=== PATIENT | female | born 1985 | race Caucasian/White ===

== ENCOUNTER 2024-01-08 08:31 | Outpatient (CLI) | payer BC, SELFPAY ==
[2024-01-08 08:50] VITALS: PULSE 81; O2SAT 99
[2024-01-08 08:53] VITALS: BP 116/70; PULSE 78
[2024-01-08 08:54] VITALS: RESP 16; TEMP 36.7
[2024-01-08 08:55] VITALS: PULSE 94; O2SAT 99
[2024-01-08] MEDS: LACTATED RINGERS 1000 ML 1,000 ML IV (09:25)
--- NOTE | 2024-01-08 09:25 | P.OBCN_ITS ---
OB - CN: HPI Date of Consult Time Seen by Provider: : Date Seen: 01/08/24 Consult date: 01/08/24 Requesting Physician: Emmy Coronel MD Primary Care Provider: Carolina Alvarez MD Consult Narrative Narrative: Martina is a 38yo at 37w1d GA seen in triage for planned ECV for malpresentation. is otherwise complicated by GDMA2 (NPH 48u qAM) and AMA. She had a low risk NIPT and normal level 2 US prior in . She is an established patient of Dr. Kim Ariza. On 01/01, she had a US for growth and testing which revealed transverse presentation (head to maternal right). EFW was 2800g at 42%ile, MVP 3.6cm and 8/8 BPP. She was referred to [facility] for consideration of ECV. Today, she is feeling well with no acute concerns. She pulled a muscle in her groin yesterday which is bothersome particularly with ambulation. Denies any regular/painful uterine contractions, vaginal bleeding or leaking of fluids. Endorses active movement. History History 5 Elective abortions Para 3 Spontaneous abortions Hx # Term Pregnancies Ectopic pregnancies Hx # Pregnancies Multiple births Number of Living Children 3 Meds Home Medications and Allergies Home Medications ?Medication ?Instructions ?Recorded ?Confirmed ?Type cetirizine 10 mg tablet (Zyrtec) 10 mg PO DAILY 01/08/24 01/08/24 History insulin NPH human semi-syn 100 48 unit subcut QHS 01/08/24 01/08/24 History unit/mL subcutaneous cartridge oxymetazoline 0.05 % nasal mist 2 spray intranasal BID 01/08/24 01/08/24 History (Afrin (oxymetazoline)) Allergies Allergy/AdvReac Type Severity Reaction Status Date / Time house dust Allergy Verified 01/08/24 09:03 pollen extracts Allergy Verified 01/08/24 09:03 acetaminophen [From Percocet] AdvReac Verified 01/08/24 09:03 ondansetron [From Zofran] AdvReac Verified 01/08/24 09:03 oxycodone [From Percocet] AdvReac Verified 01/08/24 09:03 sertraline AdvReac Verified 01/08/24 09:03 cats Allergy Intermediate Uncoded 01/08/24 09:03 OB - H&P: Exam Physical Exam: Vital signs: Pulse BP Pulse Ox 78 116/70 99 01/08/24 08:53 01/08/24 08:53 01/08/24 08:55 Narrative: General: Alert and oriented, in no acute distress Abdomen: Gravid, non-tender. TAUS: Cephalic presentation. Head is the presenting part, with body central and breech to maternal left upper quadrant. NST: Nonreactive with normal baseline but 15x15 accelerations absent, no decelerations. 1L LR for IVF resuscitation ongoing. After confirmation of cephalic presentation, patient received PO intake and was kept on continuous monitoring. Repeat NST after hydration and PO intake: Reactive. Baseline of 140bpm, moderate variability, accelerations present, decelerations absent. OB - CN: A/P Assessment and Plan (1) Malpresentation of fetus: Problem details: Cephalic on arrival for planned ECV on 01/07. Status: Acute (2) Gestational diabetes requiring insulin: Status: Acute (3) AMA (advanced maternal age) multigravida 35+: Status: Acute Plan Ms. Reaves is a 38yo at 37w1d GA seen for ECV but with cephalic presentation confirmed on admission. is complicated by GDMA2 and AMA. On arrival, she did not have a reactive NST so 1L IVF resuscitation was started. She was confirmed cephalic on TAUS, where we then allowed PO intake during a period of continuous monitoring. NST reactive prior to dismissal - baseline of 140bpm, moderate variability, accelerations present, decelerations absent. She has routine Ob follow up and testing tomorrow with her primary Ob provider, Dr. Alvarez of [facility]. I additionally notified Dr. Alvarez that ECV was not required today. We are hopeful for baby to remain cephalic, explained that reassessment will be performed at her upcoming BPPs. Discussed labor circuit to help baby engage in the pelvis. All questions answered. Return precautions reinforced.
[2024-01-08 11:07] VITALS: BP 122/57; PULSE 78
--- NOTE | 2024-01-08 14:54 | PC.OBNST ---
NST Note NST Note Start: 01/08/24 14:31 Freq: ONCE Status: Active Protocol: Document 01/08/24 11:30 MMB (Rec: 01/08/24 14:54 MMB [id number]) NST Note 5 Para (# of births) 3 EDC 01/28/24 Gestational Age In Weeks & Days 37 Weeks & 1 Days High Risk Factors Diabetes - Preexisting Type I Insulin,Advanced Maternal Age Patient Presented with Complaint(s) of Other Other Complaints Scheduled ECV. Fetus found to be vertex upon arrival. Extended monitoring to obtain reactive NST, Dr Coronel viewed tracing prior to discharge. Reactive Yes Appropriate for Gestational Age Yes RN Maria T Cisse RN Date 01/08/24 Reactive Yes Appropriate for Gestational Age Yes RN Clair Johnson RN Date 01/08/24 OB NST charge Yes Complete NST Note via Write Note Yes The provider's electronic signature indicates the NST is reactive/appropriate for gestational age. *Note to provider: If an addendum is required, open the patient's chart and click on the note under the Nurse/Allied Health tab.
== END 2024-01-08 11:10 | disposition home or self-care (01) ==
LOC: OB CLI 08:35 → OB 08:37
PROVIDERS: PCP Family Medicine; Visit Provider Obstetrics & Gynecology
DX: O24.414 Gestational diabetes mellitus in pregnancy, insulin controlled (principal); Z3A.37 37 weeks gestation of pregnancy
CPT/HCPCS: 59025; 76815; G0463; J7120

== ENCOUNTER 2024-01-11 00:48 | Inpatient (IN) | payer BC, SELFPAY ==
[2024-01-11] VITALS (23 sets, daily range): BP systolic 103–134; BP diastolic 58–101; PULSE 72–183; RESP 12–20; TEMP 36.3–37.2; O2SAT 88–100; BMI 34.4
[2024-01-11] MEDS: OXYTOCIN 30 unit/500 ML in NS 30 UNIT/500 ML BAG 300 UNIT IVPB (01:21)
[2024-01-11] MEDS: LIDOCAINE 1 % PF 30 ML INJECTION (01:40)
--- NOTE | 2024-01-11 02:12 | PM.OBHPLI ---
OB - H&P: HPI Labor/Induction History of Present Illness Time Seen by Provider: 01:15 Date Seen: 01/11/24 Chief Complaint: The patient is a 38 year old 5 para 3 at 37 4/7 weeks gestation by 6wk US not consistent with LMP, who presents with contractions Chief complaint: Maternity : 5 Para: 3 Date of last menstrual period: 04/12/23 Estimated date of delivery: 01/17/24 Gestational age based on last menstrual period: 39 Narrative: Martina Reaves is a 38 year old 5 para 3 at 37 4/7 weeks gestation by 6wk US not consistent with LMP, who presented with contractions started 01/10/28 around 5pm. These slowly increased and become much more intense around 11:30 and she presented to center at 0039 and was 8cm. History of Present Dating criteria: based on 1st trimester US only (6wk US) care: good care Ultrasounds: normal 1st trimester US, normal mid trimester US (Had level 2 US wnl) and other (growth US 36wks EFW 53%) complications: gestational diabetes (A2, controlled on insulin) Labs Blood type: 0 (-) negative Rubella: immune RPR/VDLR: nonreactive GBS status: negative HBsAG: negative Meds Home Medications and Allergies Home Medications ?Medication ?Instructions ?Recorded ?Confirmed ?Type cetirizine 10 mg tablet (Zyrtec) 10 mg PO DAILY 01/08/24 01/08/24 History insulin NPH human semi-syn 100 48 unit subcut QHS 01/08/24 01/08/24 History unit/mL subcutaneous cartridge oxymetazoline 0.05 % nasal mist 2 spray intranasal BID 01/08/24 01/08/24 History (Afrin (oxymetazoline)) Allergies Allergy/AdvReac Type Severity Reaction Status Date / Time house dust Allergy Verified 01/08/24 09:03 pollen extracts Allergy Verified 01/08/24 09:03 acetaminophen [From Percocet] AdvReac Verified 01/08/24 09:03 ondansetron [From Zofran] AdvReac Verified 01/08/24 09:03 oxycodone [From Percocet] AdvReac Verified 01/08/24 09:03 sertraline AdvReac Verified 01/08/24 09:03 cats Allergy Intermediate Uncoded 01/08/24 09:03 OB - H&P: Exam Physical Exam: Vital signs: Pulse BP Pulse Ox 83 120/60 88 01/11/24 02:01 01/11/24 02:01 01/11/24 01:18 Constitutional: Comments: Uncomfortable with contractions, breathing through Routine HEENT Exam: Head: Present normal inspection Eye: Present normal appearance ENT: Present mucous membranes moist Routine Respiratory Exam: Respiratory: Present CTA bilaterally Routine Cardiovascular Exam: Cardiovascular: RRR Detailed Labor and Delivery Exam: Patient Gravid: Yes Fetus (Single): Amniotic Membrane Status: AROM Amniotic Membrane Fluid Description: Clear Heart Rate Baseline: 110 Monitor Accelerations: Present Monitor Decelerations: Variable Micro Paleontologist Variability: Moderate (6-25) OB - Problem Based A/P Additional Plan (1) Gestational diabetes requiring insulin: Status: Acute (2) AMA (advanced maternal age) multigravida 35+: Status: Acute (3) Term : Problem details: 38yo at 37 4/7wks gestaion with A2GDM diagnosed 25wks, well controlled per pt. Status: Acute Plan: -pt in active labor, complete on my arrival. -GBS negative -GDM protocol Delivery/Labor/Induction Plan Plan: expectant management
--- NOTE | 2024-01-11 02:35 | W.PM.VAGDEL1 ---
Procedure Delivery date: 01/11/24 Procedure Done: Global Procedure Details: The patient is a 38 year-old admitted on 01/11/24 at 37 Weeks, 4 Days gestation for active labor.? Cervical exam on admission was 8 cm/100 % effaced/+2 station with membranes intact in vertex presentation.? Contractions were every 1-2 minutes.? RN initially unable to get doptones so RN placed scalp with AROM with clear fluid at scalp placement 0056. heart rate demonstrated baseline 110-130 bpm with moderate variability, + accelerations, variable decelerations. ? Labor Analgesia:? None ? Pitocin:? no ? Labor onset:? 1130pm on 01/11/24 ? Complete:? 0055 ? Pushing:? 0119 ? heart tones during second stage were 130's, increased 130-160 during pushing ? At 0121 a viable male delivered in vertex presentation over intact perineum via spontaneous vaginal delivery.? Nuchal rubens reduced after delivery of head and body spontaneously delivered after head. Infant was placed on maternal abdomen.?Body cord and 2nd nuchal reduced on abdomen. Cord was clamped and cut after a 60 second delay.? Nose and mouth were bulb suctioned.? weight pending.? 8 at 1 minute and 9 at 5 minutes.? Shoulder dystocia: no.? Nuchal cord: yes, nuchal x 2, body x 1. ? Placenta delivered spontaneously and complete at 0130 with a 3 vessel cord. ? Mother and infant were stable after delivery. ? Lacerations:? 2nd degree, repaired with 3-vicryl after lidocaine injected for anesthesia. ? Blood loss: 200 mL. Blood loss measurement type: QBL ? Sponge and needles counts are correct. Events: GDMA2 Intrapartal Events: Precipitous Labor <3 Hrs Delivery monitor: internal FHT Route of delivery: Laceration description: Perineal - 2nd Degree Delivery repair: Vicryl Estimated blood loss (mL): 200 Anesthesia type: None Gender: Male presentation: vertex Placental Delivery Description: Spontaneous Cord Description: 3 Vessels total score - 1 minute: 8 total score - 5 minute: 9
[2024-01-11 03:23] LABS: Hemoglobin* 14.1 gm/dL (12.0-16.0)
[2024-01-11] MEDS: IBUPROFEN 600 MG TABLET PO ×3 (03:28→20:29)
[2024-01-11] MEDS: DOCUSATE SODIUM 100 MG CAPSULE PO (20:29)
[2024-01-12 07:40] VITALS: BP 107/68; PULSE 68; RESP 16; TEMP 36.6; O2SAT 98
[2024-01-12 07:46] LABS: Glucose Fasting Check 79 mg/dl (60-115)
[2024-01-12 07:57] LABS: Hemoglobin* 12.2 gm/dL (12.0-16.0)
[2024-01-12 08:08] LABS: Glucose Fasting 84 mg/dl (70-95)
--- NOTE | 2024-01-12 09:50 | P.DS_ITS ---
DS: Providers Provider Time Seen by Provider: 09:50 Date Seen: 01/12/24 Date of admission: 01/11/24 00:48 Primary care physician: Carolina Alvarez MD Admitting Clinician: Jana Taylor DO Attending Physician on discharge: Delores Harper MD Date of Discharge: 01/12/24 DS: Diagnosis Discharge Diagnosis (1) (normal spontaneous vaginal delivery): Status: Acute Problem details: Doing well after delivery. Pain is well controlled. bleeding is appropriate (2) Term : Status: Acute Problem details: 38yo at 37 4/7wks gestaion with A2GDM diagnosed 25wks, well controlled per pt. (3) Gestational diabetes requiring insulin: Status: Acute Problem details: Completing 2 hour glucose tolerance test this morning, stopped insulin Exam Const: Vital Signs, click to edit/add: Vital Signs - 24 hr 01/11/24 11:26 01/11/24 16:31 01/11/24 19:41 Temperature 97.4 F L 98.9 F 98.0 F Pulse Rate [Blood Pressure Cuff] 73 79 79 Respiratory Rate 16 16 16 Blood Pressure [Ri ght Arm] 122/73 104/66 103/66 Pulse Oximetry 96 96 Oxygen Delivery Me thod Room Air Room Air 01/11/24 23:45 01/12/24 07:40 Temperature 97.7 F 97.8 F Pulse Rate [Blood Pressure Cuff] 79 68 Respiratory Rate 12 16 Blood Pressure [Ri ght Arm] 114/70 107/68 Pulse Oximetry 98 Oxygen Delivery Me thod Room Air Documenting provider has reviewed patient's vital signs: yes Common normals: no apparent distress and oriented x3 Orientation/consciousness: Yes awake, Yes oriented to person, Yes oriented to place and Yes oriented to time HENMT: Common normals: normocephalic Head and scalp: normocephalic Neck & C-Spine: Common normals: full ROM Resp: Common normals: normal respiratory effort GI: Common normals: soft to palpation Palpation: soft Neuro: Common normals: oriented x3 Sensorium/orientation: awake, oriented to person, oriented to place and oriented to time Skin: Narrative: multiple ecchymoses from IV trials/lab draws OB - DS: Summary Hospital Course Hospital Course: The patient is a 38 year old G 5 P 4 at 37.4 weeks gestation that was admitted to the Center on 01/11/24 for active labor. She had an uncomplicated vaginal delivery. She delivered a viable female . She is bottle feeding. the patient has done well. Peripartum Data Infant delivery method: Vaginal Laceration description: Perineal - 2nd Degree Episiotomy description: None complications: none [place] Gender: Male Infant Discharge Plan: Home Status at Discharge Functional status at discharge: independent ambulation Overall status at discharge: patient is back to baseline Time Spent with Patient Time attestation: Total time spent providing and/or coordinating discharge services: Time spent: Less than 30 minutes Discharge Plan Discharge Disposition: Home, Self-Care Date of Admission: 01/11/24 00:48 Attending Provider on Discharge: Delores Harper Primary Care Provider: Carolina Alvarez I Condition: Improved Anticipated Discharge Date/Time: 01/12/24 12:00 Discharge Medications: Continued cetirizine [Zyrtec] 10 mg tablet 10 mg PO DAILY Discontinued Afrin (oxymetazoline) 0.05 % mist 2 spray intranasal BID insulin NPH human semi-syn 100 unit/mL cartridge 48 unit subcut QHS Discharge Orders: Discharge Order (Routine); Ordered 01/12/24 Ordered By: Delores Harper Consulting provider completed their portion of the discharge: No Patient Education: OB Vaginal/Bottle Feeding Activity Level: No Restrictions Activity Detail: pelvic rest--nothing in the vagina for 6 weeks. Discharge Diet: Regular and High Fiber Follow Up Appointments: Carolina Alvarez MD [Primary Care Provider] - Forms: [facility] Info Instructions Discharge Comments: Please schedule [address] Gaitan at [facility] or Dr. Alvarez at [facility]
[2024-01-12 10:11] LABS: Glucose 2 Hour 152 mg/dl (70-155)
[2024-01-12] MEDS: IBUPROFEN 600 MG TABLET PO (14:02)
[2024-01-12 19:15] LABS: Rapid Plasma Reagin (RPR) Non Reactive (Non Reactive)
[2024-01-13 17:40] VITALS: BP 114/56; PULSE 67; RESP 16; TEMP 36.8; O2SAT 98
== END 2024-01-12 15:35 | disposition home or self-care (01) | DRG 560 ==
LOC: OB OUT 00:48 → OB 00:48
PROVIDERS: Admitting Provider Family Medicine; PCP Family Medicine; Visit Provider Family Medicine
DX: O24.424 Gestational diabetes mellitus in childbirth, insulin controlled (principal); O70.1 Second degree perineal laceration during delivery; O62.3 Precipitate labor; Z37.0 Single live birth; Z3A.37 37 weeks gestation of pregnancy
CPT/HCPCS: 36415; 82947; 82950; 85018; 85461; 86592; A9270; J2001; J2791